=== PATIENT | female | born 1950 | race African-American/Black ===

== ENCOUNTER 2021-10-14 09:06 | Emergency (ER) | payer MEDICARE ==
[~2021-10-14] VITALS: Ht 165.1 cm; Wt 112.0 kg
[2021-10-14] MEDS ORDERED: ALBUTEROL SULFATE 2.5 MG/3 ML NEBU. ONE (09:14)
[2021-10-14 09:15] VITALS: BP 100/76
[2021-10-14] MEDS ORDERED: IPRATRPIUM/ALBUTEROL 0.5/2.5MG 3 ML NEBU. NEB ONE (09:30)
[2021-10-14] MEDS ORDERED: methylPREDNISolone SOD SUCC PF 125 MG/2 ML VIAL. IV ONE (09:30)
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
[2021-10-14] MEDS ORDERED: ALBUTEROL SULFATE 2.5 MG/3 ML NEBU. CONT NEB ONE (09:45)
--- NOTE | 2021-10-14 10:24 | RAD ---
EXAM: Chest, single view. HISTORY: Shortness of breath. Asthma. COMPARISON: None. FINDINGS: A frontal view of the chest is obtained. There is no consolidation, pleural effusion or pne umothorax. There is bilateral basilar interstitial opacity. The heart is normal in size. There are hernadez rgical clips within the upper abdomen. IMPRESSION: Bilateral basilar interstitial opacity due to atelectasis or interstitial infiltrate. Electronically signed by: Joann Peterson MD (10/14/2021 10:22 AM) [id number]
[2021-10-14] MEDS ORDERED: AZIT250T6 PO (10:28)
[2021-10-14] MEDS ORDERED: PRED20TA PO (10:28)
== END 2021-10-14 10:45 | disposition home or self-care (01) ==
LOC: ER 09:06
DX: J45.21 Mild intermittent asthma with (acute) exacerbation (principal); J18.9 Pneumonia, unspecified organism
CPT/HCPCS: 71045; 94644; 96374; 99285; J2930; J7613

== ENCOUNTER 2022-01-25 10:28 | Emergency (ER) | payer MEDICARE ==
[~2022-01-25] VITALS: Ht 167.6 cm; Wt 102.7 kg
[~2022-01-25 10:28] MED LIST: AZIT250T6 PO; PRED20TA PO
[2022-01-25] MEDS ORDERED: CYCLOPENTOLATE 1% OPTH SOLUTION 2ML BOTTLE. OD ONE (12:45)
--- NOTE | 2022-01-25 12:52 | PHYS DOC ---
Past History Past Surgical History: Additional Past Surgical Histo: Perforated ulcer Alcohol Use: None General Adult EDM: Chief Complaint: EYE PROBLEMS HPI: HPI: Patient is a 8-year-old female who presents to the ER with right eye pain. Patient states that she bent over and when she stood back up she immediately had sharp, pain to her right eye. Patient states that the eye is sensitive to touch. Patient reports a right-sided headache since incident. Denies trauma. Patient states that her vision has been cloudy and sensitive to light. Patient's been taking Tylenol at home for discomfort. Denies all other complaints. History of asthma. Review of Systems: Review of Systems: ROS At least 10 ROS systems have been reviewed and are negative except as documented in the HPI. General: Negative except as outlined in HPI above. Skin: Negative except as outlined in HPI above. HEENT: Negative except as outlined in HPI above. Neck: Negative except as outlined in HPI above. Respiratory: Negative except as outlined in HPI above.. Cardiovascular: Negative except as outlined in HPI above. Abdomen: Negative except as outlined in HPI above. : Negative except as outlined in HPI above. Back/MSK: Negative except as outlined in HPI above. Neuro: Negative except as outlined in HPI above. Psych: Negative except as outlined in HPI above. Allergies: Allergies: Allergies Coded Allergies Type Severity Reaction Last Updated Verified Penicillins Allergy Unknown 01/25/22 Yes latex Allergy Unknown 01/25/22 Yes Physical Exam: PE: Constitutional: Well developed, well nourished, no acute distress, non-toxic appearance. [] HENT: Normocephalic, atraumatic, bilateral external ears normal, oropharynx moist, no oral exudates, nose normal. [] Eyes: PERRLA, no foreign body seen in eye, red and irritated,no discharge. [] Neck: Normal range of motion, no tenderness, supple, no stridor. [] Cardiovascular:Heart rate regular rhythm, no murmur [] Lungs & Thorax: Bilateral breath sounds clear to auscultation [] Abdomen: Bowel sounds normal, soft, no tenderness, no masses, no pulsatile masses. [] Skin: Warm, dry, no erythema, no rash. [] Back: No tenderness, no CVA tenderness. [] Extremities: No tenderness, no cyanosis, no clubbing, ROM intact, no edema. [] Neurologic: Alert and oriented X 3, normal motor function, normal sensory function, no focal deficits noted. [] Psychologic: Affect normal, judgement normal, mood normal. [] Current Patient Data: Vital Signs: Vital Signs Date Time Temp Pulse Resp B/P (MAP) Pulse Ox O2 Delivery O2 Flow Rate FiO2 01/25/22 10:50 98.2 86 18 107/67 (80) 100 Room Air EKG: EKG: [] Radiology/Procedures: Radiology/Procedures: [] Heart Score: C/O Chest Pain: No Risk Factors: Risk Factors: DM, Current or recent (<one month) smoker, HTN, HLP, family history of CAD, obesity. Risk Scores: Score 0 - 3: 2.5% MACE over next 6 weeks - Discharge Home Score 4 - 6: 20.3% MACE over next 6 weeks - Admit for Clinical Observation Score 7 - 10: 72.7% MACE over next 6 weeks - Early Invasive Strategies Course & Med Decision Making: Course & Med Decision Making Pertinent Labs and Imaging studies reviewed. (See chart for details) [] 71-year-old female presents to the ER with right eye pain. Patient reports standing up quickly and having sharp pain to her right eye. Cloudy vision. No trauma. No debris seen. Ronald reader reports 15. Vision in right eye is 20/40, left 20/25, both eyes 20/25. Spoke with [employer] talent solutions manager who states that due to the length of time since incidents occurred. Patient can follow-up on Thursday to be seen for further evaluation. Patient is instructed to call [facility] office if she has any change in vision or increase in pain before Thursday. Jerri Disclaimer: Jerri Disclaimer: This electronic medical record was generated, in whole or in part, using a voice recognition dictation system. Departure Departure: Impression: Primary Impression: Vision disturbance Additional Impression: Pain, eye, right Disposition: 01 HOME / SELF CARE / HOMELESS Condition: STABLE Referrals: NON,STAFF (PCP) Patient Instructions: Visual Disturbances Additional Instructions: You are seen in the emergency room for right eye pain. I consulted an ophtha lmologist who wants you to follow-up in their office on Thursday. Their phone number is [phone] to be seen first thing. They have an office in [place] and should be able to get you in. If you have any changes in your vision, pain, concerns. Call them immediately make a follow-up. Return to emergency room for worsening symptoms EMERGENCY DEPARTMENT GENERAL DISCHARGE INSTRUCTIONS Thank you for coming to [facility] (ED) today and trusting us with you care. We trust that you had a positivie experience in our Emergency Department. If you wish to speak to the department management, you may call the director at [phone]. YOUR FOLLOW UP INSTRUCTIONS ARE FOLLOWS: 1. Do you have a private Doctor? If you do not have a private doctor, please ask for a resource list of physicians or clinics that may be able to assist you with follow up care. 2. The Emergency Physician has interpreted your x-rays. The X-Ray specialist will also review them. If there is a change in the findings, you will be notified in 48 hours when at all possible. 3. A lab test or culture has been done, your results will be reviewed and you will be notified if you need a change in treatment. ADDITIONAL INSTRUCTIONS AND INFORMATION: 1. Your care today has been supervised by a physician who is specially trained in emergency care. Many problems require more than one evaluation for a complete diagnosis and treatment. We recommend that you schedule your follow up appointment as recommended to ensure complete treatment of you illness or injury. If you are unable to obtain follow up care and continue to have a problem, or if your condition worsens, we recommend that you return to the ED. 2. We are not able to safely determine your condition over the phone nor are we able to give sound medical advice over the phone. For these safety reasons, if you call for medical advice we will ask you to come to the ED for further evaluation. 3. If you have any questions regarding these discharge instructions please call the ED at [phone]. SAFETY INFORMATION: In the interest of safety, wellness, and injury prevention; we encourage you to wear your sealbelt, if you smoke; quite smoking, and we encourage family to use a protective helmet for bicycling and other sporting events that present an increased risk for head injury. IF YOUR SYMPTOMS WORSEN OR NEW SYMPTOMS DEVELOP, OR YOU HAVE CONCERNS ABOUT YOUR CONDITION; OR IF YOUR CONDITION WORSENS WHILE YOU ARE WAITING FOR YOUR FOLLOW UP APPO INTMENT; EITHER CONTACT YOUR PRIMARY CARE DOCTOR, THE PHYSICIAN WHOSE NAME AND NUMBER YOU WERE GIVEN, OR RETURN TO THE ED IMMEDIATELY. DAISY COVINGTON APRN Jan 25, 2022 12:51
[2022-01-25] MEDS ORDERED: ALBUTEROL SULFATE 8GM INHALER. ONE (13:07)
[2022-01-25 13:19] VITALS: BP 107/77
== END 2022-01-25 13:17 | disposition home or self-care (01) ==
LOC: ER 10:28
DX: H53.9 Unspecified visual disturbance (principal); H57.11 Ocular pain, right eye; R51.9 Headache, unspecified; Z88.0 Allergy status to penicillin; Z91.040 Latex allergy status
CPT/HCPCS: 99282

== ENCOUNTER 2022-03-22 16:52 | Emergency (ER) | payer MEDICARE ==
[~2022-03-22] VITALS: Ht 167.6 cm; Wt 102.7 kg
--- NOTE | 2022-03-22 17:36 | PHYS DOC ---
Past History Past Surgical History: Cholecystectomy, , Hysterectomy Additional Past Surgical Histo: Perforated ulcer (DIANA KEMP APRN) Alcohol Use: None (DIANA KEMP APRN) Adult General Chief Complaint Chief Complaint: CHEST PAIN [facility] HPI P patient is a 71 year-old female patient who presents with chest tightness and shortness of breath for the last few days. She reports she has never noticed a difference between yesterday and today, states she has not been able to lay flat on the bed, has not had to sleep sitting upright for the last few days. She states she just feels out of breath anytime she has tried to walk. She reports she has not had any fever, but has not had any cough. She does endorse having a prescription for Lasix approximately 1 year ago, however has not taken it since that time. She reports she has noticed some increased swelling in her feet over the last couple days, with some moderate pitting noted yesterday. She states sh e does have history of asthma, last time her asthma was bad was approximately May of last year however she has not had any issues since that time. She denies any chest pains, only the tightness. She denies any abdominal pain. Denies any nausea, vomiting, diarrhea. She denies any dizziness. (DIANA KEMP APRN) Review of Systems Review of Systems Constitutional: Denies fever or chills [] Eyes: Denies change in visual acuity, redness, or eye pain [] HENT: Denies nasal congestion or sore throat [] Respiratory: Denies cough. She does endorse shortness of breath with chest tightness. Cardiovascular: No additional information not addressed in HPI [] she does endorse lower extremity edema GI: Denies abdominal pain, nausea, vomiting, bloody stools or diarrhea [] : Denies dysuria or hematuria [] Musculoskeletal: Denies back pain or joint pain [] Integument: Denies rash or skin lesions [] Neurologic: Denies headache, focal weakness or sensory changes [] Endocrine: Denies polyuria or polydipsia [] All other systems were reviewed and found to be within normal limits, except as documented in this note. (DIANA KEMP APRN) Allergies Allergies Allergies Coded Allergies Type Severity Reaction Last Updated Verified Penicillins Allergy Unknown 01/25/22 Yes latex Allergy Unknown 01/25/22 Yes (DIANA KEMP APRN) Physical Exam Physical Exam Constitutional: Well developed, well nourished, no acute distress, non-toxic appearance. [] HENT: Normocephalic, atraumatic, bilateral external ears normal, oropharynx moist, no oral exudates, nose normal. [] Eyes: PERRLA, EOMI, conjunctiva normal, no discharge. [] Neck: Normal range of motion, no tenderness, supple, no stridor. [] Cardiovascular:Heart rate regular rhythm, no murmur [] moderate edema noted to lower extremities, Lungs & Thorax: Bilateral breath sounds clear to auscultation [] patient conversational in full sentences room, with no air hunger. SPO2 99% on room air. Abdomen: Bowel sounds normal, soft, no tenderness, no masses, no pulsatile masses. [] Skin: Warm, dry, no erythema, no rash. [] Back: No tenderness, no CVA tenderness. [] Extremities: No tenderness, no cyanosis, no clubbing, ROM intact, [] Neurologic: Alert and oriented X 3, normal motor function, normal sensory function, no focal deficits noted. [] Psychologic: Affect normal, judgement normal, mood normal. [] (DIANA KEMP APRN) Current Patient Data Vital Signs Vital Signs Date Time Temp Pulse Resp B/P (MAP) Pulse Ox O2 Delivery O2 Flow Rate FiO2 03/22/22 16:52 86 24 146/102 (117) 100 Room Air Lab Results Laboratory Tests Test 03/22/22 17:00 03/22/22 19:55 White Blood Count 8.4 x10^3/uL Red Blood Count 4.54 x10^6/uL Hemoglobin 11.7 g/dL Hematocrit 37.3 % Mean Corpuscular Volume 82 fL Mean Corpuscular Hemoglobin 26 pg Mean Corpuscular Hemoglobin Concent 31 g/dL Red Cell Distribution Width 16.9 % Platelet Count 248 x10^3/uL Neutrophils (%) (Auto) 61 % Lymphocytes (%) (Auto) 26 % Monocytes (%) (Auto) 9 % Eosinophils (%) (Auto) 2 % Basophils (%) (Auto) 3 % Neutrophils # (Auto) 5.1 x10^3uL Lymphocytes # (Auto) 2.2 x10^3/uL Monocytes # (Auto) 0.7 x10^3/uL Eosinophils # (Auto) 0.1 x10^3/uL Basophils # (Auto) 0.2 x10^3/uL Sodium Level 141 mmol/L Potassium Level 4.3 mmol/L Chloride Level 108 mmol/L Carbon Dioxide Level 26 mmol/L Anion Gap 7 Blood Urea Nitrogen 18 mg/dL Creatinine 0.9 mg/dL Estimated GFR (Cockcroft-Gault) 74.9 BUN/Creatinine Ratio 20 Glucose Level 73 mg/dL Calcium Level 8.9 mg/dL Total Bilirubin 0.3 mg/dL Aspartate Amino Transf (AST/SGOT) 162 U/L Alanine Aminotransferase (ALT/SGPT) 131 U/L Alkaline Phosphatase 227 U/L Troponin I High Sensitivity 17 ng/L NS-Bwq-M-Type Natriuretic Peptide 73 pg/mL Total Protein 6.4 g/dL Albumin 3.3 g/dL Albumin/Globulin Ratio 1.1 Lipase 81 U/L Urine Collection Type Unknown Urine Color Yellow Urine Clarity Clear Urine pH 7.5 Urine Specific [place] 1.025 Urine Protein Neg Urine Glucose (UA) Neg mg/dL Urine Ketones (Stick) Neg mg/dL Urine Blood Trace Urine Nitrite Neg Urine Bilirubin Neg Urine Urobilinogen Dipstick 1.0 mg/dL Urine Leukocyte Esterase Neg Urine RBC 0 /HPF Urine WBC Occ /HPF Urine Squamous Epithelial Cells Occ /LPF Urine Bacteria 0 /HPF Current Medications Medications (Trade) Dose Ordered Sig/Nelson Route PRN Reason Start Time Stop Time Status Last Admin Dose Admin Fentanyl Citrate (Fentanyl 2ml Vial) 50 mcg 1X ONCE IVP 03/22/22 20:15 03/22/22 20:16 DC 03/22/22 20:07 Oxycodone/ Acetaminophen (Percocet 5/325) 1 tab 1X ONCE PO 03/22/22 20:45 03/22/22 20:47 DC 03/22/22 20:45 (DIANA KEMP APRN) EKG EKG Normal sinus rhythm at 86. Normal axis. Normal intervals. DOROTHY 143. QRS 90. QTc 436. No ST changes or STEMI per Dr. Obrien[] (DIANA KEMP APRN) Radiology/Procedures Radiology/Procedures PROCEDURE: PORTABLE CHEST 1V XR CHEST 1V History: Reason: SOA / Spl. Instructions: / History: Comparison: October 14, 2021 Findings: Mild ill-defined bibasilar opacities. No pleural effusion. No pneumothorax. Normal heart size. Postop changes upper abdomen. Impression: 1. Mild bibasilar ill-defined opacities, most likely atelectasis. Electronically signed by: Jose Daniel Barnes DO (03/22/2022 7:14 PM) [facility] [] Impressions: CT ABDOMEN+PELVIS WO Clinical Indication: Reason: elevated LFT / Spl. Instructions: / History: Comparison: None. Technique: Helical CT imaging of the abdomen and pelvis is performed without IV or oral contrast. Findings: Evaluation of solid organs and bowel is limited without oral and IV contrast, decreasing sensitivity for detection of abnormal findings. Lung bases are essentially clear. There is a small hiatal hernia. The cardiac size is normal. There are multiple surgical clips in the left upper abdomen creating beam hardening artifact. Cholecystectomy. There is a 4.5 cm posterior right hepatic lobe cyst or hemangioma. There is a much smaller hypodensity in segment 8, incompletely characterized. Liver attenuation is otherwise normal. The spleen, pancreas, adrenal glands, and abdominal aorta caliber are normal. Left renal cyst does not require follow-up. There is no hydronephrosis. The stomach is not well evaluated. There is no small bowel obstruction. The appendix is not seen, no secondary signs of appendicitis. There is no colon wall thickening. There is moderate colon stool volume. The urinary bladder is normal. Hysterectomy. No pelvic free fluid. Grade 1 anterolisthesis of L4 on L5. IMPRESSION: 1. No acute abdominal or pelvic abnormality. 2. Small hiatal hernia. 3. Moderate colon stool volume, correlate for constipation. Electronically signed by: Ignacio Jones MD (03/22/2022 7:09 PM) [facility] (DIANA KEMP APRN) Heart Score C/O Chest Pain: Yes HEART Score for Chest Pain: HEART Score for Chest Pain Response (Comments) Value History Moderately Suspicious 1 ECG Normal 0 Age > 65 2 Risk Factors 1 or 2 Risk Factors 1 Troponin < Normal Limit 0 Total 4 Risk Factors: Risk Factors: DM, Current or recent (<one month) smoker, HTN, HLP, family history of CAD, obesity. Risk Scores: Risk Factors: DM, Current or recent (<one month) smoker, HTN, HLP, family history of CAD, obesity. (DIANA KEMP APRN) Course & Med Decision Making Course & Med Decision Making Pertinent Labs and Imaging studies reviewed. (See chart for details) []Reviewed imaging and lab results with patient, noting hiatal hernia. She is resting calmly in room at this time, no hypoxia, no dyspnea, no further complaints. Discussed plan to follow up with General surgeon for her hernia as needed. Discussed follow up regarding her long-standing GERD symptoms as well. Will plan to discharge at this time. She is agreeable with this plan, reports she feels much better at this time. (DIANA KEMP APRN) Course & Med Decision Making Did not see or evaluate patient. I discussed patient with BONE PULLER. Generally agree with BONE PULLER's work-up and disposition per note (BERTO LAFLEUR MD) Dragon Disclaimer Dragon Disclaimer This electronic medical record was generated, in whole or in part, using a voice recognition dictation system. (DIANA KEMP APRN) Departure Departure: Impression: Primary Impression: Hiatal hernia Additional Impression: GERD (gastroesophageal reflux disease) Disposition: HOME / SELF CARE / HOMELESS Condition: GOOD Referrals: NON,STAFF (PCP) [facility]ERY Patient Instructions: Diet for Gastroesophageal Reflux Disease, Adult, Hiatal Hernia Additional Instructions: Continue to watch what you eat Follow up with your primary care provider, or find one locally who you can see The phone number for the general surgeon's office is in your discharge papers. Call them to schedule an appointment to discuss your hiatal hernia Increase your fiber intake to help manage any constipation you may have. Problem Qualifiers Additional Impression: GERD (gastroesophageal reflux disease) Esophagitis presence: esophagitis presence not specified Qualified Codes: K21.9 - Gastro-esophageal reflux disease without esophagitis DIANA KEMP APRN March 22, 2022 17:36 BERTO LAFLEUR MD March 22, 2022 22:48
[2022-03-22 17:45] LABS: BASO # 0.2 x10^3/uL (0.0-0.2); BASO % 3 % (0-3); EOS # 0.1 x10^3/uL (0.0-0.7); EOS % 2 % (0-3); HEMATOCRIT 37.3 % (36.0-47.0); HEMOGLOBIN 11.7 g/dL (12.0-15.5); LYMPH # 2.2 x10^3/uL (1.0-4.8); LYMPH % 26 % (24-48); MEAN CORPUSCULAR HEMOGLOBIN 26 pg (25-35); MEAN CORPUSCULAR HGB CONC 31 g/dL (31-37); MEAN CORPUSCULAR VOLUME 82 fL (79-100); MONO # 0.7 x10^3/uL (0.0-1.1); MONO % 9 % (0-9); NEUT # 5.1 x10^3uL (1.8-7.7); NEUT % 61 % (31-73); PLATELET COUNT 248 x10^3/uL (140-400); RED BLOOD COUNT 4.54 x10^6/uL (3.50-5.40); RED CELL DISTRIBUTION WIDTH 16.9 % (11.5-14.5); WHITE BLOOD COUNT 8.4 x10^3/uL (4.0-11.0)
[2022-03-22 17:53] LABS: CALCIUM 8.9 mg/dL (8.5-10.1); CREATININE 0.9 mg/dL (0.6-1.0); GFR 74.9; POTASSIUM 4.3 mmol/L (3.5-5.1)
[2022-03-22 18:05] LABS: ALBUMIN 3.3 g/dL (3.4-5.0); ALBUMIN/GLOBULIN RATIO 1.1 (1.0-1.7); TOTAL BILIRUBIN 0.3 mg/dL (0.2-1.0); TOTAL PROTEIN 6.4 g/dL (6.4-8.2)
--- NOTE | 2022-03-22 19:11 | RAD ---
PQRS Compliance Statement: One or more of the following individualized dose reduction techniques were utilized for this examinat ion: 1. Automated exposure control 2. Adjustment of the mA and/or kV according to patient size 3. Use of iterative reconstruction technique CT ABDOMEN+PELVIS WO Clinical Indication: Reason: elevated LFT / Spl. Instructions: / History: Comparison: None. Technique: Helical CT imaging of the abdomen and pelvis is performed without IV or oral contrast. Findings: Evaluation of solid organs and bowel is limited without oral and IV contrast, decreasing sensitivity for detection of abnormal findings. Lung bases are essentially clear. There is a small hiatal hernia. The cardiac size is normal. There are multiple surgical clips in the left upper abdomen creating beam hardening artifact. Cholecy stectomy. There is a 4.5 cm posterior right hepatic lobe cyst or hemangioma. There is a much smaller hypodensity in segment 8, incompletely characterized. Liver attenuation is otherwise normal. The spleen, pancreas, adrenal glands, and abdominal aorta caliber are normal. Left renal cyst does not require follow-up. There is no hydronephrosis. The stomach is not well evaluated. There is no small bowel obstruction. The appendix is not seen, no secondary signs of appendicitis. There is no colon wall thickening. There is moderate colon stool vol ume. The urinary bladder is normal. Hysterectomy. No pelvic free fluid. Grade 1 anterolisthesis of L4 on L5. IMPRESSION: 1. No acute abdominal or pelvic abnormality. 2. Small hiatal hernia. 3. Moderate colon stool volume, correlate for constipation. Electronically signed by: Ignacio Jones MD (03/22/2022 7:09 PM) [facility]
--- NOTE | 2022-03-22 19:17 | RAD ---
XR CHEST 1V History: Reason: SOA / Spl. Instructions: / History: Comparison: October 14, 2021 Findings: Mild ill-defined bibasilar opacities. No pleural effusion. No pneumothorax. Normal heart size. Postop changes upper abdomen. Impression: 1. Mild bibasilar ill-defined opacities, most likely atelectasis. Electronically signed by: Jose Daniel Barnes DO (03/22/2022 7:14 PM) [facility]
[2022-03-22 20:22] LABS: BACTERIA,URINE 0 /HPF (0-FEW); CLARITY,URINE CLEAR; COLOR,URINE YELLOW; GLUCOSE,URINE NEG (NEG); NITRITE,URINE NEG (NEG); RBC,URINE 0 /HPF (0-2); SQUAMOUS EPITHELIAL CELL,UR OCC /LPF; WBC,URINE OCC /HPF (0-4)
[2022-03-22] MEDS ORDERED: oxyCODONE/APAP 5/325 1 TAB TABLET PO ONE (20:45)
[2022-03-22 20:49] VITALS: BP 143/89
== END 2022-03-22 20:48 | disposition home or self-care (01) ==
LOC: ER 16:52
DX: K44.9 Diaphragmatic hernia without obstruction or gangrene (principal); K21.9 Gastro-esophageal reflux disease without esophagitis; J45.909 Unspecified asthma, uncomplicated; Z90.49 Acquired absence of other specified parts of digestive tract; Z90.710 Acquired absence of both cervix and uterus; Z98.890 Other specified postprocedural states; Z88.0 Allergy status to penicillin; Z91.040 Latex allergy status
CPT/HCPCS: 36415; 71045; 74176; 80053; 81001; 83690; 83880; 84484; 85025; 93005; 96374; 99285; J3010